=== PATIENT | male | born 1990 | race Two or more races ===

== ENCOUNTER 2016-07-22 21:05 | Emergency (ER) | payer MEDICAID ==
[~2016-07-22] VITALS: Ht 177.8 cm; Wt 72.6 kg
[2016-07-22 21:44] LABS: Basophils # (auto) 0 uL; Basophils % (auto) 0.4 % (0.0-2.0); Eosinophils # (auto) 0.1 uL; Eosinophils % (auto) 0.6 % (0.0-7.0); Hematocrit 49.5 % (41.0-53.0); Hemoglobin 16.5 g/dL (13.5-17.5); Lymphocytes # (auto) 2.7 uL; Lymphocytes % (auto) 27.5 % (10.0-50.0); Mean Corpuscular Hemoglobin 28.7 pg (28.0-32.0); Mean Corpuscular Hgb Conc. 33.4 g/dL (32.0-36.0); Mean Corpuscular Volume 86.1 fL (80.0-100.0); Mean Platelet Volume 10.5 fL (7.4-10.4); Monocytes # (auto) 0.7 uL; Monocytes % (auto) 7.1 % (0.0-12.0); Neutrophils # (auto) 6.3 uL; Neutrophils % (auto) 64.4 % (37.0-80.0); Platelet Count (auto) 264 10^3/uL (140-450); White Blood Cell 9.8 10^3/uL (4.4-10.8)
[2016-07-22 21:57] LABS: Albumin 4.5 g/dL (3.4-5.0); Anion Gap 13 (5-15); Aspartate Aminotransferase 16 U/L (15-37); Blood Urea Nitrogen 12 mg/dL (7-18); Calcium 9.4 mg/dL (8.5-10.1); Carbon Dioxide 20 mmol/L (21-32); Chloride 107 mmol/L (98-107); GFR African American 107 mL/min; GFR Non-African American 88 mL/min; Glucose 110 mg/dL (74-106); Magnesium 2.4 mg/dL (1.6-2.6); Potassium 3.2 mmol/L (3.5-5.1); Salicylate < 1.7 mg/dL (2.8-20.0); Sodium 140 mmol/L (136-145)
[2016-07-22 22:09] LABS: Alkaline Phosphatase 71 U/L (45-117); Bilirubin, Total 0.2 mg/dL (0.2-1.0); Total Protein 7.7 g/dL (6.4-8.2)
[2016-07-22 22:10] LABS: Acetaminophen < 2.0 ug/mL (10-30)
[2016-07-23] MEDS ORDERED: SODIUM CHLORIDE 0.9% 1,000 ML IV ONE (00:15)
[2016-07-23] MEDS ORDERED: POTASSIUM CHL 20 Meq TABLET PO ONE (00:30)
[2016-07-23 01:11] LABS: Urine Bilirubin Negative (Negative); Urine Blood Negative /uL (Negative); Urine Color Yellow (Yellow); Urine Glucose Normal (Normal); Urine Ketone TRACE (Negative); Urine Mucus FEW (None Seen); Urine Nitrite Negative (Negative); Urine RBC 1 /hpf (0 - 3)
[2016-07-23 01:45] VITALS: BP 105/62
== END 2016-07-23 01:54 | disposition home or self-care (01) ==
LOC: ER 21:10
DX: R29.0 Tetany (principal); F41.0 Panic disorder [episodic paroxysmal anxiety]; J45.909 Unspecified asthma, uncomplicated
CPT/HCPCS: 36415; 71010; 80053; 80320; 80329; 81001; 83735; 85025; 93005; 94761; 96360; 96361; 99285; G0434; J7030